=== PATIENT | male | born 1960 | race Caucasian/White ===

== ENCOUNTER 2017-01-28 22:20 | Emergency (ER) | payer SELFPAY ==
[~2017-01-28] VITALS: Ht 180.3 cm; Wt 65.0 kg
[2017-01-28 22:26] VITALS: BP 108/73; PULSE 89; RESP 18; TEMP 98; O2SAT 98
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
[2017-01-29 03:01] VITALS: BP 135/67
--- NOTE | 2017-01-29 13:54 | EKG ---
Date Performed: 01/28/2017 Time Performed: 22:18:39 PTAGE: 56 years EKG: Sinus rhythm NORMAL ECG PREVIOUS TRACING : 03/15/2016 14.51 DOCTOR: Jam Serar Interpretating Date/Time 01/29/2017 13:50:28
== END 2017-01-29 03:03 | disposition home or self-care (01) ==
LOC: NEPC 22:20
DX: M79.602 Pain in left arm (principal); F17.210 Nicotine dependence, cigarettes, uncomplicated
CPT/HCPCS: 84484; 93005

== ENCOUNTER 2017-02-15 20:13 | Observation (INO) | payer SELFPAY ==
[~2017-02-15] VITALS: Ht 180.3 cm; Wt 65.9 kg
[2017-02-15 20:24] VITALS: BP 120/79; PULSE 97; RESP 18; O2SAT 93
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
[2017-02-15 20:48] LABS: AUTOMATED NEUTROPHIL # 3.3 TH/MM3 (1.8-7.7); BASOPHIL % 0.4 % (0.0-2.0); EOSINOPHIL # 0.2 TH/MM3 (0-0.4); EOSINOPHIL % 3.6 % (0.0-4.0); HEMATOCRIT 43.8 % (39.0-51.0); HEMO FLAGS DIFF FINAL; LYMPH % 39.2 % (9.0-44.0); LYMPHOCYTE # 2.5 TH/MM3 (1.0-4.8); MEAN CELL VOLUME 93.9 FL (80.0-100.0); MEAN CORPUSCULAR HEMOGLOBIN 30.9 PG (27.0-34.0); MEAN CORPUSCULAR HGB CONC 32.9 % (32.0-36.0); MONO % 5.8 % (0.0-8.0); PLATELET COUNT 273 TH/MM3 (150-450); RED BLOOD COUNT 4.66 MIL/MM3 (4.50-5.90); RED CELL DISTRIBUTION WIDTH 13.2 % (11.6-17.2); WHITE BLOOD COUNT 6.5 TH/MM3 (4.0-11.0)
[2017-02-15 20:59] LABS: INTERNATIONAL NORMALIZED RATIO 0.9 RATIO; PROTHROMBIN TIME - PATIENT 10.4 SEC (9.8-11.6)
[2017-02-15 21:12] LABS: BLOOD, URINE NEG (NEG); COMMENT (UR) CULT NOT INDICATED; CULTURE IF INDICATED CULT NOT INDICATED; GLUCOSE,URINE NEG (NEG); KETONE, URINE NEG (NEG); NITRITE,URINE NEG (NEG); PH, URINE 5.5 (5.0-8.5); SQUAMOUS EPITHELIAL CELL URINE <1 /hpf (0-5); URINE COLOR COLORLESS (YELLW/STRAW)
--- NOTE | 2017-02-15 21:12 | RADRPT ---
EXAM DATE/TIME: 02/15/2017 20:46 [facility] COMPARISON: CT BRAIN W/O CONTRAST, November 02, 2016, 18:48. INDICATIONS : Altered mental status. ETOH. RADIATION DOSE: 40.12 CTDIvol (mGy) MEDICAL HISTORY : Cardiovascular disease. SURGICAL HISTORY : None. ENCOUNTER: Initial ACUITY: 1 day PAIN SCALE: Non-responsive LOCATION: cranial TECHNIQUE: Multiple contiguous axial images were obtained of the head. Using automated exposure control and adj ustment of the mA and/or kV according to patient size, radiation dose was kept as low as reasonably a chievable to obtain optimal diagnostic quality images. FINDINGS: CEREBRUM: The ventricles are normal for age. No evidence of midline shift, mass lesion, hemorrhage or acute in farction. No extra-axial fluid collections are seen. POSTERIOR FOSSA: The cerebellum and brainstem are intact. The 4th ventricle is midline. The cerebellopontine angle i s unremarkable. EXTRACRANIAL: The visualized portion of the orbits is intact. SKULL: The calvaria is intact. No evidence of skull fracture. CONCLUSION: Normal examination for a patient of this age. No significant change has occurred. Rodrigo Kan MD on February 15, 2017 at 21:09 Board Certified Radiologist. This report was verified electronically.
[2017-02-15 21:15] LABS: ANION GAP 9 MEQ/L (5-15)
--- NOTE | 2017-02-15 21:15 | RADRPT ---
EXAM DATE/TIME: 02/15/2017 20:27 [facility] COMPARISON: No previous studies available for comparison. INDICATIONS : Chest pain. MEDICAL HISTORY : None. SURGICAL HISTORY : None. ENCOUNTER: Initial ACUITY: 1 day PAIN SCORE: 8/10 LOCATION: Bilateral chest FINDINGS: A single view of the chest demonstrates minimal basilar atelectasis or scarring. No effusion. No pneu mothorax. Heart size upper limits normal. Atherosclerotic aorta. CONCLUSION: 1. Minimal basal atelectasis or scarring. Rodrigo Kan MD on February 15, 2017 at 21:12 Board Certified Radiologist. This report was verified electronically.
[2017-02-15 21:19] LABS: ALKALINE PHOSPHATASE 75 U/L (45-117); ALT (GPT) 18 U/L (12-78); AST (GOT) 31 U/L (15-37); BICARBONATE 25.8 MEQ/L (21.0-32.0); BLOOD UREA NITROGEN 3 MG/DL (7-18); CHLORIDE 102 MEQ/L (98-107); CREATINE KINASE 102 U/L (39-308); GLOMERULAR FILTRATION RATE 106 ML/MIN (>89); SODIUM (NA) 137 MEQ/L (136-145); TOTAL BILIRUBIN ADULT 0.2 MG/DL (0.2-1.0)
[2017-02-15 21:20] LABS: AMPHETAMINE, URINE NEG (NEG); BARBITURATES, URINE NEG (NEG); COCAINE, URINE NEG (NEG)
[2017-02-15 21:39] LABS: CKMB 0.5 NG/ML (0.5-3.6)
[2017-02-15] MEDS ORDERED: THIAMINE INJ 100 MG in SODIUM CHLORIDE 0.9% INJ 100 ML IV ONE (22:00)
[2017-02-15] MEDS: SODIUM CHLOR 0.9% 1000 ML INJ 1,000 ML IV SCH (22:05)
[2017-02-15] MEDS ORDERED: ASPIRIN 81 MG CHEW TAB CHEW ONE (22:15)
--- NOTE | 2017-02-15 22:16 | RADRPT ---
EXAM DATE/TIME: 02/15/2017 21:38 [facility] COMPARISON: No previous studies available for comparison. INDICATIONS : Left sided weakness. MEDICAL HISTORY : Cardiovascular disease Hypercholesterolemia. SURGICAL HISTORY : None. 2011 ENCOUNTER: Initial ACUITY: 1 day PAIN SCORE: 5/10 LOCATION: Left shoulder TECHNIQUE: Multiplanar, multisequence MRI of the brain was performed without contrast. FINDINGS: CEREBRUM: The ventricles are normal for age. No evidence of midline shift, mass lesion, hemorrhage or acute in farction. No extraaxial fluid collections are seen. The pituitary gland and suprasellar cistern are normal in configuration. WHITE MATTER: No significant signal abnormalities are seen in the white matter. POSTERIOR FOSSA: The cerebellum and brainstem are intact. The 4th ventricle is midline. The cerebellopontine angle is unremarkable. The cerebellar tonsils are normal in position. DIFFUSION IMAGING: No focal areas of restricted diffusion are seen. No evidence of acute infarction. EXTRACRANIAL: The visualized portions of the orbits and paranasal sinuses are unremarkable. CONCLUSION: 1. No acute findings. Specifically no recent infarct, mass effect or shift. Rodrigo Kan MD on February 15, 2017 at 22:12 Board Certified Radiologist. This report was verified electronically.
[2017-02-15] MEDS ORDERED: ACETAMINOPHEN 325 MG TAB PO ONE (23:00)
[2017-02-15] MEDS ORDERED: LORazepam 2 MG TAB PO PRN (23:15)
[2017-02-15] MEDS ORDERED: BISACODYL 10 MG SUPP RECTAL PRN (23:15)
[2017-02-15] MEDS ORDERED: ACETAMINOPHEN 325 MG TAB PO PRN (23:15)
[2017-02-15] MEDS ORDERED: LORazepam 2 MG/ML VIAL IV PUSH PRN ×4 (23:15)
[2017-02-15] MEDS ORDERED: SODIUM CHLORIDE 0.9% FLUSH 10 ML FLUSH IV FLUSH PRN (23:15)
[2017-02-15] MEDS ORDERED: LORazepam 1 MG TAB PO PRN (23:15)
[2017-02-15] MEDS ORDERED: HALOPERIDOL LACTATE 5 MG/ML AMP IM PRN (23:15)
[2017-02-15] MEDS ORDERED: FLUMAZENIL 0.5 MG/5 ML VIAL IV PUSH PRN (23:15)
[2017-02-15] MEDS ORDERED: ONDANSETRON HCL 4 MG/2 ML VIAL IVP PRN (23:15)
--- NOTE | 2017-02-15 23:15 | HHI.HP ---
[facility] No Primary Care Physician Admission Diagnosis Cp RO CA, left sided neurologic symptoms, R/o TIA Diagnoses: (1) Chest pain Diagnosis: Principal (2) Lower extremity weakness Diagnosis: Principal (3) Alcoholic intoxication Diagnosis: Principal Travel History International Travel<30 Days: No Contact w/Intl Traveler <30 Da: No Traveled to Known Affected Are: No History of Present Illness This is a 56-year-old male with a PMH of Anxiety, Depression, CAD s/p Stent 2011 , Alcohol Abuse, Tobacco Abuse and h/o Methamphetamine Abuse who presents to the ER with complaints of chest pain with radiation to left shoulder. Patient arrives in the ER acutely intoxicated. While in ER, also had complaints of left lower extremity weakness and difficulty ambulating. On arrival, BP 120/79 , HR 97, O2 sat 93% on RA, Afebrile. CBC unremarkable. Chemistry essentially unremarkable. Troponin negative. EKG with no acute changes. Alcohol 311. Urine Drug Screen negative. UA negative. CXR with no acute findings, minimal basal atelectasis. MRI Brain with no acute findings. Shoulder X-ray negative. Review of Systems Except as stated in HPI: all other systems reviewed are Neg ROS: 14 point review of systems otherwise negative. Past Family Social History Past Medical History PMH: Anxiety, Depression, CAD s/p Stent 2011, Alcohol Abuse, Tobacco Abuse and h/o Methamphetamine Abuse Past Surgical History PAST SURGICAL HISTORY: Cardiac Stent Allergies: Coded Allergies: No Known Allergies (Verified , 02/15/17) Family History PAST FAMILY HISTORY: Reviewed. No h/o DM or CAD Social History PAST SOCIAL HISTORY: Drinks daily, unable to quantify. Smokes 1ppd. H/o Methamphetamine Abuse, Urine Drug Screen negative. Physical Exam Vital Signs Vital Signs Date Time Temp Pulse Resp B/P Pulse Ox O2 Delivery O2 Flow Rate FiO2 02/15/17 20:24 97 18 120/79 93 Physical Exam PE: GENERAL: Middle-aged white male in no acute distress, acutely intoxicated. HEENT: PERRLA, EOMI. No scleral icterus or conjunctival pallor. No lid lag or facial droop. CARDIOVASCULAR: Regular rate and rhythm. No obvious murmurs to auscultation. No chest tenderness to palpation. RESPIRATORY: No obvious rhonchi or wheezing. Clear to auscultation. Breath sounds equal bilaterally. GASTROINTESTINAL: Abdomen soft, non-tender, nondistended. BS normal. MUSCULOSKELETAL: Extremities without clubbing, cyanosis, or edema. No obvious deformities. NEUROLOGICAL: Awake, alert, intoxicated. No focal neurologic deficits. Moving both upper and lower extremities spontaneously. Laboratory Laboratory Tests Test 02/15/17 02/15/17 20:40 21:00 White Blood Count 6.5 Red Blood Count 4.66 Hemoglobin 14.4 Hematocrit 43.8 Mean Corpuscular Volume 93.9 Mean Corpuscular Hemoglobin 30.9 Mean Corpuscular Hemoglobin 32.9 Concent Red Cell Distribution Width 13.2 Platelet Count 273 Mean Platelet Volume 7.3 Neutrophils (%) (Auto) 51.0 Lymphocytes (%) (Auto) 39.2 Monocytes (%) (Auto) 5.8 Eosinophils (%) (Auto) 3.6 Basophils (%) (Auto) 0.4 Neutrophils # (Auto) 3.3 Lymphocytes # (Auto) 2.5 Monocytes # (Auto) 0.4 Eosinophils # (Auto) 0.2 Basophils # (Auto) 0.0 CBC Comment DIFF FINAL Differential Comment Prothrombin Time 10.4 Prothromb Time International 0.9 Ratio Activated Partial 28.0 Thromboplast Time Sodium Level 137 Potassium Level 4.0 Chloride Level 102 Carbon Dioxide Level 25.8 Anion Gap 9 Blood Urea Nitrogen 3 Creatinine 0.76 Estimat Glomerular Filtration 106 Rate Random Glucose 86 Calcium Level 8.1 Magnesium Level 2.0 Total Bilirubin 0.2 Aspartate Amino Transf 31 (AST/SGOT) Alanine Aminotransferase 18 (ALT/SGPT) Alkaline Phosphatase 75 Total Creatine Kinase 102 Creatine Kinase MB 0.5 Troponin I LESS THAN 0.02 B-Type Natriuretic Peptide 24 Total Protein 7.3 Albumin 3.6 Lipase 85 Ethyl Alcohol Level 311 Urine Color COLORLESS Urine Turbidity CLEAR Urine pH 5.5 Urine Specific [place] 1.002 Urine Protein NEG Urine Glucose (UA) NEG Urine Ketones NEG Urine Occult Blood NEG Urine Nitrite NEG Urine Bilirubin NEG Urine Urobilinogen LESS THAN 2.0 Urine Leukocyte Esterase NEG Urine RBC 5 Urine WBC 1 Urine Squamous Epithelial <1 Cells Microscopic Urinalysis Comment CULT NOT INDICATED Urine Opiates Screen NEG Urine Barbiturates Screen NEG Urine Amphetamines Screen NEG Urine Benzodiazepines Screen NEG Urine Cocaine Screen NEG Urine Cannabinoids Screen NEG Result Diagram: 02/15/17203902/15/172039 Assessment and Plan Problem List: (1) Chest pain ICD Code: R07.9 Status: Acute (2) Lower extremity weakness ICD Code: R29.898 Status: Acute (3) Alcoholic intoxication ICD Code: F10.129 Status: Acute Assessment and Plan A/P: 1. Chest Pain: acute onset of chest pain w/ radiation to left shoulder, h/o CAD. Initial trop negative, EKG w/ no acute ischemia. Admit for Observation, telemetry. CXR w/ no acute findings, Shoulder X-ray negative, images reviewed by me. Currently chest pain free. NTG/Morphine prn if needed. 2. LE Weakness: reports lower extremity weakness w/ difficulty ambulating due to weakness. MRI Brain w/ no acute findings, images reviewed by me. Check Carotid US. PT for eval/tx. 3. Alcohol Intoxication: Alcohol Abuse w/ Acute Alcohol Intoxication, drinks daily, Alcohol 311. Seizure Precautions, MVT/Thiamine/Folate, will start CIWA protocol to prevent withdrawal during hospitalization. 4. DVT Prophylaxis: SCD/Teds. 5. Social work for d/c planning as needed. 6. Case discussed w/ ER physician at length Freda Guzmán MD Feb 15, 2017 23:15
--- NOTE | 2017-02-15 23:40 | RADRPT ---
EXAM DATE/TIME: 02/15/2017 23:06 [facility] COMPARISON: No previous studies available for comparison. INDICATIONS : Left shoulder pain, no known injury. MEDICAL HISTORY : None. SURGICAL HISTORY : None. ENCOUNTER: Initial ACUITY: 1 week PAIN SCORE: 10/10 LOCATION: Left shoulder. FINDINGS: Multiple view examination of the left shoulder demonstrates no evidence of fracture or dislocation. The glenohumeral and acromioclavicular joints are maintained. Degenerative changes are seen involving the acromioclavicular joint without significant subacromial space spurring. There is normal range o f motion between internal and external rotation. Bony mineralization is normal. CONCLUSION: 1. No acute abnormality. 2. Degenerative changes of the a.c. joint. Brayden Nguyen Jr., MD on February 15, 2017 at 23:38 Board Certified Radiologist. This report was verified electronically.
[2017-02-15] MEDS: THIAMINE INJ 100 MG in SODIUM CHLORIDE 0.9% INJ 100 ML IV SCH (23:56)
[2017-02-16] VITALS (9 sets, daily range): BP systolic 91–153; BP diastolic 67–80; PULSE 70–89; RESP 16–18; TEMP 95.7–98.4; O2SAT 93–97
[2017-02-16] MEDS: MORPHINE SULFATE 4 MG/ML INJ IV PRN ×3 (01:03→19:38)
[2017-02-16] MEDS: MULTIVITAMIN INJ 10 ML, FOLIC ACID INJ 1 MG in SODIUM CHLORID 0.9% 500 ML INJ 500 ML IV SCH ×2 (01:03→22:32)
[2017-02-16] MEDS ORDERED: ASPIRIN 81 MG CHEW TAB CHEW SCH (09:00)
[2017-02-16] MEDS: SODIUM CHLORIDE 0.9% FLUSH 10 ML FLUSH IV FLUSH SCH ×2 (09:00→19:38)
--- NOTE | 2017-02-16 09:15 | RADRPT ---
EXAM DATE/TIME: 02/16/2017 08:24 [facility] COMPARISON: No previous studies available for comparison. INDICATIONS : Transient ischemic attack. MEDICAL HISTORY : Myocardial infarction. Arthritis. Substance use. Measles. SURGICAL HISTORY : Coronary artery stent. Cardiac cath. ENCOUNTER: Initial ACUITY: 2 days PAIN SCORE: 2/10 LOCATION: Bilateral neck PEAK SYSTOLIC VELOCITIES (cm/sec): ICA/CCA RATIO: Right: 1.0 Left: 0.9 ICA: Right: 83 Left: 77 CCA: Right: 81 Left: 82 ECA: Right: 177 Left: 141 VERTEBRAL: Right: 37 antegrade Left: 58 antegrade Elevated flow velocities and ICA/CCA ratios have been found to correlate with increased degrees of vessel stenosis, calculated as percentage of diameter relative to a normal segment of distal ICA/CCA FINDINGS: RIGHT CAROTID: There is no evidence for a hemodynamically significant carotid stenosis. Minimal int imal hyperplasia is present with scattered calcific plaque. LEFT CAROTID: There is no evidence for a hemodynamically significant carotid stenosis. Minimal inti mal hyperplasia is present with scattered calcific plaque. VERTEBRAL ARTERIES: Flow is antegrade in both vertebral arteries. MISCELLANEOUS: There are no ancillary masses or adenopathy. CONCLUSION: Negative examination for a hemodynamically significant carotid stenosis. Jesus Choudhary MD FACR Jesus Choudhary MD FACR on February 16, 2017 at 9:12 Board Certified Radiologist. This report was verified electronically.
[2017-02-16] MEDS: ACETAMINOPHEN/HYDROcodone 325 MG/5 MG TAB PO PRN ×2 (09:18→18:40)
[2017-02-16] MEDS ORDERED: CYCLOBENZAPRINE HCL 10 MG TAB PO ONE (10:30)
[2017-02-16] MEDS ORDERED: PILL SPLITTER OTHER PRN (10:30)
--- NOTE | 2017-02-16 10:31 | HHI.PR ---
Subjective Remarks Follow up for acute alcohol intoxication, chest pain, left shoulder pain. The patient today recalls going to get a beer last night, then he isn't sure what happened, but remembers coming to the hospital via [facility]. He states his chest just feels sore today but denies any specific chest pains. He mostly complains of left shoulder pain, unable to lift the left arm, with associated tingling and weakness. Denies any neck pain. Denies any shortness of breath, edema, or weight gain. He states his shoulder has been painful for 2 weeks now. He does not recall any recent injury or fall. He does not follow with any doctors in at least 3-4 years. He does not take any medications. When asked how much he drinks , he states "I don't know". He denies any tremors currently. Last drink was yesterday. Objective Vitals Vital Signs Date Time Temp Pulse Resp B/P Pulse Ox O2 Delivery O2 Flow Rate FiO2 02/16/17 07:32 96.2 75 16 136/80 94 02/16/17 05:07 98.4 77 18 91/67 93 02/16/17 01:18 77 02/16/17 01:14 16 02/16/17 01:14 16 02/16/17 00:29 96 02/15/17 20:24 97 18 120/79 93 Result Diagram: 02/15/17203902/15/172039 Imaging Last Impressions Carotid Artery Ultrasound 02/16/17 0000 Signed Impressions: Service Date/Time: Thursday, February 16, 2017 08:24 - CONCLUSION: Negative examination for a hemodynamically significant carotid stenosis. Jesus Choduhary MD Shoulder X-Ray 02/15/172249 Signed Impressions: Service Date/Time: Wednesday, February 15, 2017 23:06 - CONCLUSION: 1. No acute abnormality. 2. Degenerative changes of the a.c. joint. Brayden Nguyen Jr., MD Brain MRI 02/15/172107 Signed Impressions: Service Date/Time: Wednesday, February 15, 2017 21:38 - CONCLUSION: 1. No acute findings. Specifically no recent infarct, mass effect or shift. Rodrigo Kan MD Head CT 02/15/172029 Signed Impressions: Service Date/Time: Wednesday, February 15, 2017 20:46 - CONCLUSION: Normal examination for a patient of this age. No significant change has occurred. Rodrigo Kan MD Chest X-Ray 02/15/172029 Signed Impressions: Service Date/Time: Wednesday, February 15, 2017 20:27 - CONCLUSION: 1. Minimal basal atelectasis or scarring. Rodrigo Kan MD Objective Remarks GENERAL: Well-nourished, well-developed middle aged male patient in [facility]. SKIN: Warm and dry. No rash. HEENT: Normocephalic. Atraumatic. Pupils equal and round. No scleral icterus. No injection or drainage. Mucous membranes pink and moist. NECK: Supple. Trachea midline. CARDIOVASCULAR: Regular rate and rhythm. S1, S2 noted. No murmur appreciated. Chest wall nontender to palpation. RESPIRATORY: No accessory muscle use. Clear to auscultation. Breath sounds equal bilaterally. GASTROINTESTINAL: Abdomen soft, non-tender, nondistended. Normoactive bowel sounds x4. MUSCULOSKELETAL: No obvious deformities. Extremities without clubbing, cyanosis , or edema. Left shoulder nontender to palpation however left shoulder pain elicited with any active or passive ROM exercises of the arm. Mildly tender left trapezius and upper thoracic paraspinous muscles consistent with muscle spasms. NEUROLOGICAL: Awake and alert. No obvious cranial nerve deficits. Motor grossly within normal limits. 5/5 muscle strength in bilateral lower extremities and RUE. 5/5 church administrator strength of LUE however does not participate in any other LUE strength testing secondary to pain. Normal speech. PSYCHIATRIC: Appropriate mood and affect; insight and judgment normal. Medications and IVs Current Medications Medications (Trade) Dose Ordered Sig/Jt Route Start Time Stop Time Status Last Admin Sodium Chloride 1,000 ml @ 70 mls/hr [id number] IV 02/15/17 22:00 02/15/17 22:05 Multivitamins 10 ml/Folic Acid 1 mg/Sodium Chloride 510.2 ml @ 125 mls/hr Q24H IV 02/15/17 23:15 02/20/17 23:14 02/16/17 01:03 (Thiamine Inj/NS Inj) 101 ml @ 100 mls/hr Q24H IV 02/15/17 23:15 02/18/17 23:14 02/15/17 23:56 (Vitamin B1) 100 mg DAILY PO 02/19/17 09:00 (Romazicon Inj) 0.2 mg Q1M PRN IV PUSH 02/15/17 23:15 (Ativan) 1 mg Q4H PRN PO 02/15/17 23:15 (Ativan Inj) 1 mg Q4H PRN IV PUSH 02/15/17 23:15 (Ativan) 2 mg Q2H PRN PO 02/15/17 23:15 (Ativan Inj) 2 mg Q2H PRN IV PUSH 02/15/17 23:15 02/16/17 02:50 (Ativan Inj) 2 mg Q1H PRN IV PUSH 02/15/17 23:15 (Ativan Inj) 2 mg Q15M PRN IV PUSH 02/15/17 23:15 (Haldol Inj) 2 mg Q15M PRN IM 02/15/17 23:15 (NS Flush) 2 ml UNSCH PRN IV FLUSH 02/15/17 23:15 (NS Flush) 2 ml BID IV FLUSH 02/16/17 09:00 (Zofran Inj) 4 mg Q6H PRN IVP 02/15/17 23:15 (Dulcolax Supp) 10 mg DAILY PRN RECTAL 02/15/17 23:15 (Tylenol) 650 mg Q6H PRN PO 02/15/17 23:15 ([place] 5-325 Mg) 1 tab Q4H PRN PO 02/15/17 23:15 02/16/17 09:18 (Morphine Inj) 2 mg Q3H PRN IV 02/15/17 23:15 02/16/17 01:03 (Flexeril) 5 mg Q8H PRN PO 02/16/17 10:15 (Flexeril) 5 mg ONCE ONCE PO 02/16/17 10:30 02/16/17 10:31 (Pill Splitter) 1 ea UNSCH PRN OTHER 02/16/17 10:30 Urinary Catheter: No Vascular Central Line Catheter: No A/P Problem List: (1) Chest pain ICD Code: R07.9 Status: Acute (2) Lower extremity weakness ICD Code: R29.898 Status: Acute (3) Alcoholic intoxication ICD Code: F10.129 Status: Acute Assessment and Plan 56-year-old male with a PMH of Anxiety, Depression, CAD s/p Stent 2011, Alcohol Abuse, Tobacco Abuse and h/o Methamphetamine Abuse who presents to the ER with complaints of chest pain with radiation to left shoulder. Atypical Chest Pain: acute onset of chest pain w/ radiation to left shoulder, h /o CAD w/stent x1. Initial trops negative x2, EKG w/ no acute ischemia, checking 3rd set. Admit for Observation, monitor on telemetry. CXR w/ no acute findings, images reviewed by me. Currently chest pain free. NTG/ Morphine prn if needed. Check echocardiogram. No further episodes of chest pain. Suspect musculoskeletal related to shoulder pain. Left Shoulder Pain: strongly suspect musculoskeletal, advanced arthritis, muscle spasms. Shoulder xray images reviewed by me, no acute abnormality, shows degenerative changes of the AC joint. [place] prn. Flexeril prn. LE Weakness: reports lower extremity weakness w/ difficulty ambulating due to weakness. MRI Brain w/ no acute findings, images reviewed by me. Carotid US unremarkable. PT for eval/tx. Alcohol Abuse w/ Acute Alcohol Intoxication: drinks daily, Alcohol 311. Counseled on cessation. Seizure Precautions, MVT/Thiamine/Folate, start CIWA protocol to prevent withdrawal during hospitalization. DVT Prophylaxis: SCD/Teds. Aziza Enrique PA-C Feb 16, 2017 10:31 am
--- NOTE | 2017-02-16 10:35 | EKG ---
Date Performed: 02/15/2017 Time Performed: 20:26:57 PTAGE: 56 years EKG: Sinus rhythm NORMAL ECG PREVIOUS TRACING : 01/28/2017 22.18 DOCTOR: Jam Serra Interpretating Date/Time 02/16/2017 10:33:19
[2017-02-16] MEDS: ASPIRIN EC 81 MG TABEC PO SCH (11:32)
[2017-02-16 11:38] LABS: AUTOMATED NEUTROPHIL # 4.2 TH/MM3 (1.8-7.7); BASOPHIL # 0.1 TH/MM3 (0-0.2); BASOPHIL % 1.2 % (0.0-2.0); EOSINOPHIL # 0.3 TH/MM3 (0-0.4); EOSINOPHIL % 4.1 % (0.0-4.0); HEMATOCRIT 38.4 % (39.0-51.0); HEMO FLAGS DIFF FINAL; LYMPH % 22.1 % (9.0-44.0); LYMPHOCYTE # 1.5 TH/MM3 (1.0-4.8); MEAN CELL VOLUME 93.3 FL (80.0-100.0); MEAN CORPUSCULAR HEMOGLOBIN 32.3 PG (27.0-34.0); MEAN CORPUSCULAR HGB CONC 34.6 % (32.0-36.0); MONO % 8.8 % (0.0-8.0); NEUT % 63.8 % (16.0-70.0); PLATELET COUNT 283 TH/MM3 (150-450); RED BLOOD COUNT 4.12 MIL/MM3 (4.50-5.90); RED CELL DISTRIBUTION WIDTH 13.3 % (11.6-17.2); WHITE BLOOD COUNT 6.6 TH/MM3 (4.0-11.0)
[2017-02-16 12:09] LABS: ALKALINE PHOSPHATASE 63 U/L (45-117); ALT (GPT) 15 U/L (12-78); ANION GAP 8 MEQ/L (5-15); AST (GOT) 24 U/L (15-37); BICARBONATE 25.7 MEQ/L (21.0-32.0); BLOOD UREA NITROGEN 5 MG/DL (7-18); CHLORIDE 105 MEQ/L (98-107); GLOMERULAR FILTRATION RATE 123 ML/MIN (>89); POTASSIUM 4.1 MEQ/L (3.5-5.1); SODIUM (NA) 139 MEQ/L (136-145); TOTAL BILIRUBIN ADULT 0.3 MG/DL (0.2-1.0)
[2017-02-16] MEDS: SODIUM CHLOR 0.9% 1000 ML INJ 1,000 ML IV SCH (13:39)
[2017-02-16] MEDS: THIAMINE INJ 100 MG in SODIUM CHLORIDE 0.9% INJ 100 ML IV SCH (22:32)
[2017-02-16] MEDS: CYCLOBENZAPRINE HCL 10 MG TAB PO PRN (22:33)
[2017-02-17] VITALS (7 sets, daily range): BP systolic 109–155; BP diastolic 65–81; PULSE 68–90; RESP 17–20; TEMP 97.5–98.2; O2SAT 92–97
[2017-02-17] MEDS: SODIUM CHLORIDE 0.9% FLUSH 10 ML FLUSH IV FLUSH SCH ×2 (09:00→20:24)
[2017-02-17] MEDS ORDERED: REGADENOSON INJ 0.4 MG/5 ML SYR ONE (09:49)
[2017-02-17] MEDS: ASPIRIN EC 81 MG TABEC PO SCH (11:01)
[2017-02-17] MEDS: ACETAMINOPHEN/HYDROcodone 325 MG/5 MG TAB PO PRN ×2 (11:02→19:18)
[2017-02-17] MEDS: CYCLOBENZAPRINE HCL 10 MG TAB PO PRN ×2 (11:05→19:18)
--- NOTE | 2017-02-17 11:10 | HHI.PR ---
Subjective Remarks Follow up for chest pain, left shoulder pain, weakness. The patient complains of continued left shoulder pain, although the Lortab and Flexeril is helping and he is now at least able to lift the arm slightly. He still has numbness and tingling only when he lifts the left arm. Continues to deny any recent injury or fall. Denies any chest pain. Denies any neck pain. Denies fevers/chills. Denies any other medical complaints at this time. Objective Vitals Vital Signs Date Time Temp Pulse Resp B/P Pulse Ox O2 Delivery O2 Flow Rate FiO2 02/17/17 07:36 97.7 80 17 155/81 94 02/17/17 06:15 88 18 136/71 97 02/16/17 20:01 98.2 72 18 140/77 97 02/16/17 19:59 16 02/16/17 19:58 16 02/16/17 19:15 77 02/16/17 15:28 96.5 70 18 153/77 94 02/16/17 11:36 95.7 76 18 119/74 94 I/O 02/16/17 02/16/17 02/16/17 02/17/17 02/17/17 02/17/17 07:00 15:00 23:00 07:00 15:00 23:00 Intake Total 1900 ml Output Total 1300 ml Balance 600 ml Intake Oral 650 ml IV Total 1250 ml Output Urine Total 1300 ml # Bowel Movements 0 Result Diagram: 02/16/17 1122 02/16/17 1122 Imaging Last Impressions Myocardial Perfusion Scan Nuc Med 02/17/17 0700 Signed Impressions: Service Date/Time: Friday, February 17, 2017 09:20 - CONCLUSION: Mild severity fixed anterior perfusion abnormality without evidence of ischemia. RISK CATEGORY: Intermediate (1-3%% Annual Mortality Rate) Curtis Fitzgerald MD Carotid Artery Ultrasound 02/16/17 0000 Signed Impressions: Service Date/Time: Thursday, February 16, 2017 08:24 - CONCLUSION: Negative examination for a hemodynamically significant carotid stenosis. Jesus Choudhary MD Shoulder X-Ray 02/15/17 2250 Signed Impressions: Service Date/Time: Wednesday, February 15, 2017 23:06 - CONCLUSION: 1. No acute abnormality. 2. Degenerative changes of the a.c. joint. Brayden Nguyen Jr., MD Brain MRI 02/15/172107 Signed Impressions: Service Date/Time: Wednesday, February 15, 2017 21:38 - CONCLUSION: 1. No acute findings. Specifically no recent infarct, mass effect or shift. Rodrigo Kan MD Head CT 02/15/172029 Signed Impressions: Service Date/Time: Wednesday, February 15, 2017 20:46 - CONCLUSION: Normal examination for a patient of this age. No significant change has occurred. Rodrigo Kan MD Chest X-Ray 02/15/172029 Signed Impressions: Service Date/Time: Wednesday, February 15, 2017 20:27 - CONCLUSION: 1. Minimal basal atelectasis or scarring. Rodrigo Kan MD Objective Remarks GENERAL: Well-nourished, well-developed middle aged male patient in [place]. SKIN: Warm and dry. No rash. HEENT: Normocephalic. Atraumatic. Pupils equal and round. No scleral icterus. No injection or drainage. Mucous membranes pink and moist. NECK: Supple. Trachea midline. CARDIOVASCULAR: Regular rate and rhythm. S1, S2 noted. No murmur appreciated. Chest wall nontender to palpation. RESPIRATORY: No accessory muscle use. Clear to auscultation. Breath sounds equal bilaterally. GASTROINTESTINAL: Abdomen soft, non-tender, nondistended. Normoactive bowel sounds x4. MUSCULOSKELETAL: No obvious deformities. Extremities without clubbing, cyanosis , or edema. Left shoulder nontender to palpation however left shoulder pain elicited with any active or passive ROM exercises of the arm. Mildly tender left trapezius and upper thoracic paraspinous muscles consistent with muscle spasms. NEUROLOGICAL: Awake and alert. No obvious cranial nerve deficits. Motor grossly within normal limits. 5/5 muscle strength in BLE and RUE. 5/5 call manager strength of LUE however LUE strength testing limited secondary to left shoulder pain. Normal speech. PSYCHIATRIC: Appropriate mood and affect; insight and judgment normal. Medications and IVs Current Medications Medications (Trade) Dose Ordered Sig/Jt Route Start Time Stop Time Status Last Admin Sodium Chloride 1,000 ml @ 70 mls/hr [id number] IV 02/15/17 22:00 02/16/17 13:39 Multivitamins 10 ml/Folic Acid 1 mg/Sodium Chloride 510.2 ml @ 125 mls/hr Q24H IV 02/15/17 23:15 02/20/17 23:14 02/16/17 22:32 (Thiamine Inj/NS Inj) 101 ml @ 100 mls/hr Q24H IV 02/15/17 23:15 02/18/17 23:14 02/16/17 22:32 (Vitamin B1) 100 mg DAILY PO 02/19/17 09:00 (Romazicon Inj) 0.2 mg Q1M PRN IV PUSH 02/15/17 23:15 (Ativan) 1 mg Q4H PRN PO 02/15/17 23:15 (Ativan Inj) 1 mg Q4H PRN IV PUSH 02/15/17 23:15 (Ativan) 2 mg Q2H PRN PO 02/15/17 23:15 (Ativan Inj) 2 mg Q2H PRN IV PUSH 02/15/17 23:15 02/16/17 02:50 (Ativan Inj) 2 mg Q1H PRN IV PUSH 02/15/17 23:15 (Ativan Inj) 2 mg Q15M PRN IV PUSH 02/15/17 23:15 (Haldol Inj) 2 mg Q15M PRN IM 02/15/17 23:15 (NS Flush) 2 ml UNSCH PRN IV FLUSH 02/15/17 23:15 (NS Flush) 2 ml BID IV FLUSH 02/16/17 09:00 02/16/17 19:38 (Zofran Inj) 4 mg Q6H PRN IVP 02/15/17 23:15 (Dulcolax Supp) 10 mg DAILY PRN RECTAL 02/15/17 23:15 (Tylenol) 650 mg Q6H PRN PO 02/15/17 23:15 ([place] 5-325 Mg) 1 tab Q4H PRN PO 02/15/17 23:15 02/17/17 11:02 (Morphine Inj) 2 mg Q3H PRN IV 02/15/17 23:15 02/16/17 19:38 (Flexeril) 5 mg Q8H PRN PO 02/16/17 10:15 02/17/17 11:05 (Pill Splitter) 1 ea UNSCH PRN OTHER 02/16/17 10:30 (Ecotrin Ec) 81 mg DAILY PO 02/16/17 11:00 02/17/17 11:01 Urinary Catheter: No Vascular Central Line Catheter: No A/P Problem List: (1) Chest pain ICD Code: R07.9 Status: Acute (2) Lower extremity weakness ICD Code: R29.898 Status: Acute (3) Alcoholic intoxication ICD Code: F10.129 Status: Acute Assessment and Plan 56-year-old male with a PMH of Anxiety, Depression, CAD s/p Stent 2011, Alcohol Abuse, Tobacco Abuse and h/o Methamphetamine Abuse who presents to the ER with complaints of chest pain with radiation to left shoulder. Atypical Chest Pain: acute onset of chest pain w/ radiation to left shoulder, h /o CAD w/stent x1. ACS ruled out with negative serial cardiac enzymes x3 and EKG with no acute ischemia. Monitor on telemetry. CXR w/ no acute findings, images reviewed by me. NTG/Morphine prn if needed. Suspect musculoskeletal related to shoulder pain however with hx of CAD w/stent, checked Nuclear Stress Test which showed mild severity fixed anterior perfusion abnormality without evidence of ischemia. Currently chest pain free and no further episodes. Resolved. Left Shoulder Pain: strongly suspect musculoskeletal, advanced arthritis, muscle spasms. Shoulder xray images reviewed by me, no acute abnormality, shows degenerative changes of the AC joint. [place] prn. Flexeril prn. Still painful today, check C/T-spine MRI and L shoulder MRI. LE Weakness: reports lower extremity weakness w/ difficulty ambulating due to weakness. MRI Brain w/ no acute findings, images reviewed by me. Carotid US unremarkable. PT for eval/tx, recommended HHC vs Rehab. Alcohol Abuse w/ Acute Alcohol Intoxication: drinks daily, Alcohol 311. Counseled on cessation. Seizure Precautions, MVT/Thiamine/Folate, start CIWA protocol to prevent withdrawal during hospitalization. DVT Prophylaxis: SCD/Teds. Written by Aziza Enrique, acting as scribe for Dr. Puente on 02/17/17 at 11:10. All or portions of this note were transcribed by scribe ANTHONY Andrade . I , Dr. Hong Puente personally performed the history, physical exam, and medical decision making; and confirmed the accuracy of the information in the transcribed note. Authenticated by Dr. Hong Puente on 02/18/17 at 00:06. Problem Qualifiers (1) Chest pain: Qualified Code: R07.9 - Chest pain, unspecified type (2) Lower extremity weakness: Qualified Code: R29.898 - Weakness of left lower extremity (3) Alcoholic intoxication: Qualified Code: F10.129 - Alcoholic intoxication, with unspecified complication Aziza Enrique PA-C Feb 17, 2017 11:10 Santhosh Puente DO Feb 18, 2017 00:07
--- NOTE | 2017-02-17 11:20 | RADRPT ---
EXAM DATE/TIME: 02/17/2017 09:20 [facility] COMPARISON: No previous studies available for comparison. INDICATIONS : Left chest pain radiating to the left shoulder for one day. Angina. Coronary artery disease. DOSE: 25.8 mCi Tc99m Myoview at stress. 8.7 mCi Tc99m Myoview at rest. 0.4 mg Lexiscan STRESS SYMPTOMS: Dizziness and nausea. EJECTION FRACTION: 70% MEDICAL HISTORY : SURGICAL HISTORY : Coronary artery stent. ENCOUNTER: Initial ACUITY: 1 day PAIN SCALE: 6/10 LOCATION: Left chest TECHNIQUE: The patient underwent pharmacologic stress with infusion of prescribed dose. Continuous ECG tracing was monitored during stress. Gated SPECT imaging was performed after stress and conventional SPECT i maging was performed at rest. The examination was performed on a SPECT/CT scanner, both attenuation and non-corrected datasets were reviewed. FINDINGS: DISTRIBUTION: The maximum perfused segment at stress is in the posterobasal wall. PERFUSION STUDY: There is a moderate sized area of mildly diminished relative perfusion involving the anterior wall no t extending to the cardiac apex. There is no evidence of redistribution. GATED STUDY: There is intact wall motion and thickening without hypokinetic or dyskinetic segments. CONCLUSION: Mild severity fixed anterior perfusion abnormality without evidence of ischemia. RISK CATEGORY: Intermediate (1-3% Annual Mortality Rate) Curtis Fitzgerald MD on February 17, 2017 at 11:10 Board Certified Radiologist. This report was verified electronically.
[2017-02-17] MEDS: SODIUM CHLOR 0.9% 1000 ML INJ 1,000 ML IV SCH (17:00)
--- NOTE | 2017-02-17 20:24 | RADRPT ---
EXAM DATE/TIME: 02/17/2017 18:25 [facility] COMPARISON: No previous studies available for comparison. INDICATIONS : Left arm and neck pain. MEDICAL HISTORY : None. SURGICAL HISTORY : Coronary artery stent. ENCOUNTER: Subsequent ACUITY: 2 day PAIN SCORE: 6/10 LOCATION: upper spine. TECHNIQUE: Multiplanar multisequence MRI of the thoracic spine was performed. FINDINGS: There is motion degradation of several of the acquisitions, especially the axial T2. The patient wou ld not allow any further or repeat scanning. VERTEBRA: Normal vertebral body height. Homogeneous marrow signal. ALIGNMENT: Normal. CORD: Normal position and configuration. T1-T2: Normal. T2-T3: The thecal sac has a normal diameter. No evidence of disc bulge or protrusion. T3-T4: The thecal sac has a normal diameter. No evidence of disc bulge or protrusion. T4-T5: The thecal sac has a normal diameter. No evidence of disc bulge or protrusion. T5-T6: The thecal sac has a normal diameter. No evidence of disc bulge or protrusion. T6-T7: The thecal sac has a normal diameter. No evidence of disc bulge or protrusion. T7-T8: The thecal sac has a normal diameter. No evidence of disc bulge or protrusion. T8-T9: Right-sided epidural impression suggesting disc bulging or protrusion. No evidence cord compression. T9-T10: There is symmetric bilateral facet joint hypertrophy causing flattening of the dorsal lateral aspect of the thecal sac. No evidence of disc bulge or protrusion. T10-T11: There is minimal bilateral facet joint hypertrophy without significant deformity of the thecal sac. No evidence of disc bulge protrusion. T11-T12: The thecal sac has a normal diameter. No evidence of disc bulge or protrusion. T12-L1: The thecal sac has a normal diameter. No evidence of disc bulge or protrusion. CONCLUSION: 1. Epidural impression on the right side at T8-T9 due to either to a disc bulge or protrusion. No ev idence cord compression. 2. Moderate facet joint hypertrophy T9-11 which cause some impression upon the dorsolateral thecal sa cMore Jones MD on February 17, 2017 at 20:19 Board Certified Radiologist. This report was verified electronically.
[2017-02-17] MEDS: MULTIVITAMIN INJ 10 ML, FOLIC ACID INJ 1 MG in SODIUM CHLORID 0.9% 500 ML INJ 500 ML IV SCH (22:42)
[2017-02-17] MEDS: THIAMINE INJ 100 MG in SODIUM CHLORIDE 0.9% INJ 100 ML IV SCH (22:42)
[2017-02-17] MEDS: MORPHINE SULFATE 4 MG/ML INJ IV PRN (22:52)
[2017-02-18] MEDS: MULTIVITAMIN INJ 10 ML, FOLIC ACID INJ 1 MG in SODIUM CHLORID 0.9% 500 ML INJ 500 ML IV SCH (00:56)
[2017-02-18] MEDS: SODIUM CHLOR 0.9% 1000 ML INJ 1,000 ML IV SCH ×2 (04:53→20:47)
[2017-02-18 07:40] VITALS: BP 130/74; PULSE 66; RESP 17; TEMP 97.7; O2SAT 93
[2017-02-18] MEDS: SODIUM CHLORIDE 0.9% FLUSH 10 ML FLUSH IV FLUSH SCH ×2 (09:00→20:47)
[2017-02-18] MEDS: ASPIRIN EC 81 MG TABEC PO SCH (09:15)
[2017-02-18] MEDS: ACETAMINOPHEN/HYDROcodone 325 MG/5 MG TAB PO PRN (09:15)
[2017-02-18] MEDS ORDERED: LORazepam 1 MG TAB PO ONE (09:45)
--- NOTE | 2017-02-18 10:35 | HHI.PR ---
Subjective Remarks Follow-up for left shoulder pain. The patient continues to complain of constant left shoulder pain. He has associated paresthesias with numbness and tingling down to his hand. He states the pain is worse with movement. He states the pain is intermittently worse. He denies any fevers or chills. He has been tolerating diet. He states he lives with a friend. He states he can take the bus to follow-up in community clinic if needed. Objective Vitals Vital Signs Date Time Temp Pulse Resp B/P Pulse Ox O2 Delivery O2 Flow Rate FiO2 02/18/17 10:18 20 02/18/17 07:40 97.7 66 17 130/74 93 02/17/17 23:37 98.2 68 18 115/72 92 02/17/17 20:00 78 02/17/17 19:33 97.8 78 20 111/65 93 02/17/17 15:34 97.9 76 18 109/75 97 02/17/17 11:31 97.5 90 18 122/71 96 Result Diagram: 02/16/17 1122 02/16/17 1122 Imaging Last Impressions Myocardial Perfusion Scan Nuc Med 02/17/17 0700 Signed Impressions: Service Date/Time: Friday, February 17, 2017 09:20 - CONCLUSION: Mild severity fixed anterior perfusion abnormality without evidence of ischemia. RISK CATEGORY: Intermediate (1-3%% Annual Mortality Rate) Curtis Fitzgerald MD Thoracic Spine MRI 02/17/17 0000 Signed Impressions: Service Date/Time: Friday, February 17, 2017 18:25 - CONCLUSION: 1. Epidural impression on the right side at T8-T9 due to either to a disc bulge or protrusion. No evidence cord compression. 2. Moderate facet joint hypertrophy T9-11 which cause some impression upon the dorsolateral thecal sac. Brayden Jones MD Carotid Artery Ultrasound 02/16/17 0000 Signed Impressions: Service Date/Time: Thursday, February 16, 2017 08:24 - CONCLUSION: Negative examination for a hemodynamically significant carotid stenosis. Jesus Choudhary MD Shoulder X-Ray 02/15/17 2250 Signed Impressions: Service Date/Time: Wednesday, February 15, 2017 23:06 - CONCLUSION: 1. No acute abnormality. 2. Degenerative changes of the a.c. joint. Brayden Nguyen Jr., MD Brain MRI 02/15/172107 Signed Impressions: Service Date/Time: Wednesday, February 15, 2017 21:38 - CONCLUSION: 1. No acute findings. Specifically no recent infarct, mass effect or shift. Rodrigo Kan MD Head CT 02/15/172029 Signed Impressions: Service Date/Time: Wednesday, February 15, 2017 20:46 - CONCLUSION: Normal examination for a patient of this age. No significant change has occurred. Rodrigo Kan MD Chest X-Ray 02/15/172029 Signed Impressions: Service Date/Time: Wednesday, February 15, 2017 20:27 - CONCLUSION: 1. Minimal basal atelectasis or scarring. Rodrigo Kan MD Objective Remarks GENERAL: Well-developed well-nourished. In no acute distress. SKIN: Warm and dry. No lesions noted. HEENT: Normocephalic. Pupils equal and round. Mucous membranes pink and moist. CARDIOVASCULAR: Regular rate and rhythm. No murmur appreciated. RESPIRATORY: No accessory muscle use. Clear to auscultation. Breath sounds equal bilaterally. GASTROINTESTINAL: Abdomen soft, non-tender, nondistended. Bowel sounds x4. MUSCULOSKELETAL: No obvious deformities. No clubbing or cyanosis. No edema. Left shoulder nontender to palpation however left shoulder pain elicited with any active or passive ROM exercises of the arm. Mildly tender left trapezius and upper thoracic paraspinous muscles consistent with muscle spasms. NEUROLOGICAL: Awake and alert. No focal neurological deficits. Moves upper and lower extremities spontaneously. Normal speech. PSYCHIATRIC: Appropriate mood and affect; insight and judgment normal. A/P Problem List: (1) Chest pain ICD Code: R07.9 Status: Resolved (2) Lower extremity weakness ICD Code: R29.898 Status: Acute (3) Alcoholic intoxication ICD Code: F10.129 Status: Acute Assessment and Plan 56-year-old male with a PMH of Anxiety, Depression, CAD s/p Stent 2011, Alcohol Abuse, Tobacco Abuse and h/o Methamphetamine Abuse who presents to the ER with complaints of chest pain with radiation to left shoulder. Atypical Chest Pain: acute onset of chest pain w/ radiation to left shoulder, h /o CAD w/stent x1. ACS ruled out with negative serial cardiac enzymes x3 and EKG with no acute ischemia. Monitor on telemetry. CXR w/ no acute findings, images reviewed by me. NTG/Morphine prn if needed. Suspect musculoskeletal related to shoulder pain however with hx of CAD w/stent, checked Nuclear Stress Test which showed mild severity fixed anterior perfusion abnormality without evidence of acute ischemia. Currently chest pain free and no further episodes. Resolved. Left Shoulder Pain: strongly suspect musculoskeletal, advanced arthritis, muscle spasms. Shoulder xray images reviewed, no acute abnormality, shows degenerative changes of the AC joint. Deale prn. Flexeril prn. Continued pain, check C-spine MRI and L shoulder MRI. LE Weakness: reports lower extremity weakness w/ difficulty ambulating due to weakness. MRI Brain w/ no acute findings Carotid US unremarkable. PT consulted. Planning for outpatient physical therapy., Case management consulted Alcohol Abuse w/ Acute Alcohol Intoxication: drinks daily, Alcohol 311. Counseled on cessation. Seizure Precautions, MVT/Thiamine/Folate, start CIWA protocol to prevent withdrawal during hospitalization. DVT Prophylaxis: SCD/Teds. Written by Andrea Yan, acting as scribe for Dr. Puente on 02/18/17 at 10:34. All or portions of this note were transcribed by scribe ANTHONY Bennett. I, Dr. Hong Puente personally performed the history, physical exam, and medical decision making; and confirmed the accuracy of the information in the transcribed note. Authenticated by Dr. Hong Puente on 02/18/17 at 23:16. Discharge Planning Follow-up results of cervical and left shoulder imaging. Case management consult for assistance with outpatient follow-up. Anticipate discharge later today. Problem Qualifiers (1) Chest pain: Qualified Code: R07.9 - Chest pain, unspecified type (2) Lower extremity weakness: Qualified Code: R29.898 - Weakness of left lower extremity (3) Alcoholic intoxication: Qualified Code: F10.129 - Alcoholic intoxication, with unspecified complication Andrea Yan Feb 18, 2017 10:35 Santhosh Puente DO Feb 18, 2017 23:17
[2017-02-18 10:50] VITALS: BP 103/56; PULSE 83; RESP 16; TEMP 97.8; O2SAT 96
[2017-02-18 16:05] VITALS: BP 102/60; PULSE 74; RESP 18; TEMP 98.1; O2SAT 96
--- NOTE | 2017-02-18 18:09 | RADRPT ---
EXAM DATE/TIME: 02/18/2017 14:26 [facility] COMPARISON: No previous studies available for comparison. INDICATIONS : Neck pain with left arm numbness. MEDICAL HISTORY : None. SURGICAL HISTORY : Coronary artery stent. ENCOUNTER: Subsequent ACUITY: 2 day PAIN SCORE: 4/10 LOCATION: neck. TECHNIQUE: Multiplanar, multisequence MRI examination of the cervical spine was performed. FINDINGS: VERTEBRAE: Normal vertebral body height. Homogeneous marrow signal. ALIGNMENT: No evidence of subluxation. CORD: Normal configuration and signal. POST FOSSA: The cerebellar tonsils are normal in position. C2-C3: The thecal sac has a normal configuration. There is no evidence of disc herniation or spinal canal s tenosis. The neural foramina are patent bilaterally. C3-C4: There is a small central disc protrusion without stenosis. C4-C5: Mild disc bulge without stenosis. C5-C6: Posterior osteophytic ridging, worse on the right with right lateral recess and right foraminal steno sis. Minimal left foraminal encroachment. C6-C7: Mild osteophytic ridging without stenosis. C7-T1: The thecal sac has a normal configuration. There is no evidence of disc herniation or spinal canal s tenosis. The neural foramina are patent bilaterally. CONCLUSION: 1. At C3-4 there is a small central protrusion effacing intrathecal sac without stenosis. 2. At C5-6 there is osteophytic ridging, worse on the right side with mild right lateral recess and f oraminal encroachment. 3. Mild degenerative change at C4-5 and C6-7 results in mild encroachment on the thecal sac without s tenosis. 4. No cord compression or cord edema. Normal alignment of the cervical spine. Rodrigo Kan MD on February 18, 2017 at 18:04 Board Certified Radiologist. This report was verified electronically.
[2017-02-18 20:00] VITALS: BP 120/74; PULSE 84; RESP 20; TEMP 97.6; O2SAT 95
[2017-02-18 23:39] VITALS: BP 132/72; PULSE 68; RESP 18; TEMP 97.4; O2SAT 96
[2017-02-19 04:11] VITALS: BP 132/68; PULSE 68; RESP 19; TEMP 98; O2SAT 97
[2017-02-19 04:37] VITALS: PULSE 64
[2017-02-19] MEDS: ACETAMINOPHEN/HYDROcodone 325 MG/5 MG TAB PO PRN (05:49)
[2017-02-19] MEDS: MORPHINE SULFATE 4 MG/ML INJ IV PRN (07:36)
[2017-02-19 07:45] VITALS: BP 127/73; PULSE 77; RESP 19; TEMP 97.9; O2SAT 97
--- NOTE | 2017-02-19 08:46 | RADRPT ---
EXAM DATE/TIME: 02/19/2017 07:48 [facility] COMPARISON: SHOULDER LEFT COMPLETE (>2VWS), February 15, 2017, 23:06. CHEST SINGLE AP, February 15, 2017, 20:27. INDICATIONS : Left arm pain. MEDICAL HISTORY : None. SURGICAL HISTORY : Coronary artery stent. ENCOUNTER: Subsequent ACUITY: 3 day PAIN SCORE: 5/10 LOCATION: Left shoulder. TECHNIQUE: Multiplanar, multisequence MRI examination was performed without contrast. FINDINGS: ROTATOR CUFF: There is diffuse thinning of the distal supraspinatus and infraspinatus tendons. Mild articular surfa ce irregularity of the distal infraspinatus tendon just proximal to the insertion. No fluid-filled te ndon gap. Mild intermediate signal abnormality of the distal subscapularis tendon indicating tendinos is. Teres minor tendon is intact. LABRUM: Small tear of the posterior superior labrum. MARROW/CARTILAGE: Small glenohumeral joint osteophytes. Mild articular cartilage thinning of the superior glenoid and s uperior central humeral head. OTHER: Moderate severity hypertrophic change of the acromioclavicular joint. Acromion is Type 1 (flat). Pr oximal biceps tendon is intact. 1.9 cm nodule noted in the left upper lung. CONCLUSION: 1. Nodule in the left upper lung. Recommend correlation with noncontrast chest CT. 2. Glenohumeral joint arthrosis with small osteophytes and mild chondromalacia. 3. Diffuse thinning of the distal supraspinatus and infraspinatus tendons and mild articular surface irregularity of the distal infraspinatus tendon but no full thickness fluid-filled gap. 4. Mild distal subscapularis tendinosis. 5. Small posterior superior labral tear 6. Moderate severity acromioclavicular joint arthritic findings. Rodolfo Doan MD on February 19, 2017 at 8:36 Board Certified Radiologist. This report was verified electronically.
[2017-02-19] MEDS ORDERED: THIAMINE HCL 100 MG TAB PO SCH (09:00)
[2017-02-19] MEDS: ASPIRIN EC 81 MG TABEC PO SCH (09:37)
[2017-02-19] MEDS: SODIUM CHLORIDE 0.9% FLUSH 10 ML FLUSH IV FLUSH SCH (09:38)
[2017-02-19] MEDS ORDERED: NAPROXEN SODIUM 550 MG TAB PO SCH (10:15)
[2017-02-19] MEDS ORDERED: FAMOTIDINE 20 MG TAB PO SCH (10:15)
[2017-02-19] MEDS ORDERED: NAPROXEN SODIUM PO (10:32)
[2017-02-19] MEDS ORDERED: FAMO20TA2 PO (10:32)
[2017-02-19] MEDS ORDERED: ASPI81TA11 PO (11:04)
--- NOTE | 2017-02-19 11:04 | HHI.DS ---
Discharge Summary Admission Date Feb 15, 2017 at 22:47 Discharge Date: Feb 19, 2017 Admitting Diagnosis Cp [place], left sided neurologic symptoms, R/o TIA (1) Chest pain ICD Code: R07.9 Diagnosis: Principal (2) Alcoholic intoxication ICD Code: F10.129 Diagnosis: Secondary (3) Left arm pain ICD Code: M79.602 Diagnosis: Principal (4) Lung nodule ICD Code: R91.1 Diagnosis: Secondary Procedures none Brief History - From Admission This is a 56-year-old male with a PMH of Anxiety, Depression, CAD s/p Stent 2011 , Alcohol Abuse, Tobacco Abuse and h/o Methamphetamine Abuse who presents to the ER with complaints of chest pain with radiation to left shoulder. Patient arrives in the ER acutely intoxicated. While in ER, also had complaints of left lower extremity weakness and difficulty ambulating. On arrival, BP 120/79 , HR 97, O2 sat 93% on RA, Afebrile. CBC unremarkable. Chemistry essentially unremarkable. Troponin negative. EKG with no acute changes. Alcohol 311. Urine Drug Screen negative. UA negative. CXR with no acute findings, minimal basal atelectasis. MRI Brain with no acute findings. Shoulder X-ray negative. CBC/BMP: 02/16/17 1122 02/16/17 1122 Significant Findings Laboratory Tests Test 02/16/17 11:22 Red Blood Count 4.12 MIL/MM3 (4.50-5.90) Hematocrit 38.4 % (39.0-51.0) Monocytes (%) (Auto) 8.8 % (0.0-8.0) Eosinophils (%) (Auto) 4.1 % (0.0-4.0) Blood Urea Nitrogen 5 MG/DL (7-18) Calcium Level 8.1 MG/DL (8.5-10.1) Troponin I LESS THAN 0.02 NG/ML (0.02-0.05) Albumin 3.0 GM/DL (3.4-5.0) Imaging Last Impressions Shoulder MRI 02/19/17 0000 Signed Impressions: Service Date/Time: February 07:48 - CONCLUSION: 1. Nodule in the left upper lung. Recommend correlation with noncontrast chest CT. 2. Glenohumeral joint arthrosis with small osteophytes and mild chondromalacia. 3. Diffuse thinning of the distal supraspinatus and infraspinatus tendons and mild articular surface irregularity of the distal infraspinatus tendon but no full thickness fluid-filled gap. 4. Mild distal subscapularis tendinosis. 5. Small posterior superior labral tear 6. Moderate severity acromioclavicular joint arthritic findings. Rodolfo Doan MD Cervical Spine MRI 02/18/17 0000 Signed Impressions: Service Date/Time: Saturday, February 18, 2017 14:26 - CONCLUSION: 1. At C3-4 there is a small central protrusion effacing intrathecal sac without stenosis. 2. At C5-6 there is osteophytic ridging, worse on the right side with mild right lateral recess and foraminal encroachment. 3. Mild degenerative change at C4-5 and C6-7 results in mild encroachment on the thecal sac without stenosis. 4. No cord compression or cord edema. Normal alignment of the cervical spine. Rodrigo Kan MD Myocardial Perfusion Scan Nuc Med 02/17/17 0700 Signed Impressions: Service Date/Time: Friday, February 17, 2017 09:20 - CONCLUSION: Mild severity fixed anterior perfusion abnormality without evidence of ischemia. RISK CATEGORY: Intermediate (1-3%% Annual Mortality Rate) Curtis Fitzgerald MD Thoracic Spine MRI 02/17/17 0000 Signed Impressions: Service Date/Time: Friday, February 17, 2017 18:25 - CONCLUSION: 1. Epidural impression on the right side at T8-T9 due to either to a disc bulge or protrusion. No evidence cord compression. 2. Moderate facet joint hypertrophy T9-11 which cause some impression upon the dorsolateral thecal sac. Brayden Jones MD Carotid Artery Ultrasound 02/16/17 0000 Signed Impressions: Service Date/Time: Thursday, February 16, 2017 08:24 - CONCLUSION: Negative examination for a hemodynamically significant carotid stenosis. Jesus Choudhary MD Shoulder X-Ray 02/15/17 2250 Signed Impressions: Service Date/Time: Wednesday, February 15, 2017 23:06 - CONCLUSION: 1. No acute abnormality. 2. Degenerative changes of the a.c. joint. Brayden Nguyen Jr., MD Brain MRI 02/15/172107 Signed Impressions: Service Date/Time: Wednesday, February 15, 2017 21:38 - CONCLUSION: 1. No acute findings. Specifically no recent infarct, mass effect or shift. Rodrigo Kan MD Head CT 02/15/172029 Signed Impressions: Service Date/Time: Wednesday, February 15, 2017 20:46 - CONCLUSION: Normal examination for a patient of this age. No significant change has occurred. Rodrigo Kan MD Chest X-Ray 02/15/172029 Signed Impressions: Service Date/Time: Wednesday, February 15, 2017 20:27 - CONCLUSION: 1. Minimal basal atelectasis or scarring. Rodrigo Kan MD PE at Discharge GENERAL: Well-developed well-nourished. In no acute distress. SKIN: Warm and dry. No lesions noted. HEENT: Normocephalic. Pupils equal and round. Mucous membranes pink and moist. CARDIOVASCULAR: Regular rate and rhythm. No murmur appreciated. RESPIRATORY: No accessory muscle use. Clear to auscultation. Breath sounds equal bilaterally. GASTROINTESTINAL: Abdomen soft, non-tender, nondistended. Bowel sounds x4. MUSCULOSKELETAL: No obvious deformities. No clubbing or cyanosis. No edema. Left shoulder nontender to palpation however left shoulder pain elicited with any active or passive ROM exercises of the arm. Mildly tender left trapezius and upper thoracic paraspinous muscles consistent with muscle spasms. NEUROLOGICAL: Awake and alert. No focal neurological deficits. Moves upper and lower extremities spontaneously. Normal speech. PSYCHIATRIC: Appropriate mood and affect; insight and judgment normal. Pt update on day of discharge Patient continues to complain of pain in his left shoulder, unchanged. Hospital Course 56-year-old male with a PMH of Anxiety, Depression, CAD s/p Stent 2011, Alcohol Abuse, Tobacco Abuse and h/o Methamphetamine Abuse who presents to the ER with complaints of chest pain with radiation to left shoulder. Atypical Chest Pain: acute onset of chest pain w/ radiation to left shoulder, h /o CAD w/stent x1. ACS ruled out with negative serial cardiac enzymes x3 and EKG with no acute ischemia. Monitor on telemetry. CXR w/ no acute findings, images reviewed by me. NTG/Morphine prn if needed. Suspect musculoskeletal related to shoulder pain however with hx of CAD w/stent, checked Nuclear Stress Test which showed mild severity fixed anterior perfusion abnormality without evidence of acute ischemia. Currently chest pain free and no further episodes. Resolved. Left Shoulder Pain: strongly suspect musculoskeletal, advanced arthritis, muscle spasms. Shoulder xray with no acute abnormality, shows degenerative changes of the AC joint. Continued pain, check C-spine MRI and L shoulder MRI. Cervical MRI with mild degenerative changes. Shoulder MRI with mild to moderate chronic findings. Naproxen as needed with gastric protection. LE Weakness: reports lower extremity weakness w/ difficulty ambulating due to weakness. MRI Brain w/ no acute findings Carotid US unremarkable. PT consulted. Planning for outpatient physical therapy, follow-up with PCP. Alcohol Abuse w/ Acute Alcohol Intoxication: drinks daily, Alcohol 311. Counseled on cessation. Seizure Precautions, MVT/Thiamine/Folate, covered with CIWA protocol to prevent withdrawal during hospitalization. Lung nodule: Incidental left upper lung nodule seen on shoulder MRI. Patient informed of findings. Recommended outpatient chest CT in 3 months to assess for stability. Pt Condition on Discharge: Stable Discharge Disposition: Discharge Home Discharge Time: > 30 minutes Discharge Instructions DIET: Follow Instructions for: Heart Healthy Diet Activities you can perform: Regular-No Restrictions Follow up Referrals: PCP Follow-up - 1 Week with Sharla Maxwell MD New Orders: CT THORAX W/O CONTRAST (CHEST) - 3 Months New Medications: Aspirin DR (Aspirin EC) 81 Mg Tabdr 81 MG PO DAILY Blood Clot Prevention #30 TAB Famotidine (Famotidine) 20 Mg Tab 10 MG PO BID Reflux #60 TAB ([Naproxen Sodium]) 550 MG TAB 550 MG PO BID Inflammation #60 TAB Additional Information Written by Andrea Yan, acting as scribe for Dr. Puente on 02/19/17 at 11:04. All or portions of this note were transcribed by scribANTHONY Velazquez. I, Dr. Hong Puente personally performed the history, physical exam, and medical decision making; and confirmed the accuracy of the information in the transcribed note. Authenticated by Dr. Hong Puetne on 02/20/17 at 00:19. Andrea Yan Feb 19, 2017 11:04 Santhosh Puente DO Feb 20, 2017 00:20
[2017-02-19 11:47] VITALS: BP 108/65; PULSE 72; RESP 20; TEMP 97.9; O2SAT 96
[2017-02-19 13:05] VITALS: PULSE 68
== END 2017-02-19 14:41 | disposition home or self-care (01) ==
LOC: NEPC 20:13 → NEDH 22:47 → NEPHCDU 02-16 00:59
PROVIDERS: ADMIT Hospitalist; ATTEND Hospitalist
DX: R07.89 Other chest pain (principal); R53.1 Weakness; M25.512 Pain in left shoulder; R91.1 Solitary pulmonary nodule; F10.129 Alcohol abuse with intoxication, unspecified; I25.2 Old myocardial infarction; K21.9 Gastro-esophageal reflux disease without esophagitis; I25.10 Atherosclerotic heart disease of native coronary artery without angina pectoris; E78.5 Hyperlipidemia, unspecified; M19.90 Unspecified osteoarthritis, unspecified site; F41.9 Anxiety disorder, unspecified; F32.9 Major depressive disorder, single episode, unspecified; H91.90 Unspecified hearing loss, unspecified ear; F17.210 Nicotine dependence, cigarettes, uncomplicated; Z95.5 Presence of coronary angioplasty implant and graft
CPT/HCPCS: 70450; 70551; 71010; 72141; 72146; 73030; 73221; 78452; 80053; 80307; 81001; 82550; 82552; 82948; 83690; 83735; 83880; 84484; 85025; 85610; 85730; 93005; 93017; 93880; 97162; 99285; A9502; G0378; G8987; G8988; J2060; J2270; J2785; J3411; J7030; J7040

== ENCOUNTER 2017-03-25 01:58 | Emergency (ER) | payer SELFPAY ==
[~2017-03-25] VITALS: Ht 180.3 cm; Wt 65.0 kg
[~2017-03-25 01:58] MED LIST: ASPI81TA11 PO; FAMO20TA2 PO; NAPROXEN SODIUM PO
[2017-03-25 02:01] VITALS: BP 167/104; PULSE 112; RESP 16; TEMP 98; O2SAT 97
[2017-03-25] MEDS ORDERED: SODIUM CHLORIDE 0.9% FLUSH 10 ML FLUSH IVF PRN (02:15)
[2017-03-25] MEDS: NITROGLYCERIN 0.4 MG SL 25 TABS/BTL SL SCH ×3 (02:15→02:25)
[2017-03-25] MEDS ORDERED: NITROGLYCERIN 2% OINT 1 GM PACKET TOP ONE (02:15)
[2017-03-25] MEDS ORDERED: ASPIRIN 81 MG CHEW TAB PO ONE (02:15)
[2017-03-25 02:24] VITALS: BP 96/56; PULSE 100; RESP 24; TEMP 98.8; O2SAT 95; O2SAT 97
[2017-03-25 02:45] LABS: AUTOMATED NEUTROPHIL # 2.7 TH/MM3 (1.8-7.7); BASOPHIL # 0.1 TH/MM3 (0-0.2); BASOPHIL % 1.1 % (0.0-2.0); EOSINOPHIL # 0.5 TH/MM3 (0-0.4); EOSINOPHIL % 8.2 % (0.0-4.0); HEMATOCRIT 39.7 % (39.0-51.0); HEMO FLAGS DIFF FINAL; LYMPH % 41.1 % (9.0-44.0); LYMPHOCYTE # 2.7 TH/MM3 (1.0-4.8); MEAN CELL VOLUME 94.1 FL (80.0-100.0); MEAN CORPUSCULAR HEMOGLOBIN 30.9 PG (27.0-34.0); MEAN CORPUSCULAR HGB CONC 32.9 % (32.0-36.0); MONO % 9.4 % (0.0-8.0); NEUT % 40.2 % (16.0-70.0); PLATELET COUNT 205 TH/MM3 (150-450); RED BLOOD COUNT 4.21 MIL/MM3 (4.50-5.90); RED CELL DISTRIBUTION WIDTH 13.4 % (11.6-17.2); WHITE BLOOD COUNT 6.6 TH/MM3 (4.0-11.0)
--- NOTE | 2017-03-25 02:48 | RADRPT ---
EXAM DATE/TIME: 03/25/2017 02:33 [facility] COMPARISON: CHEST SINGLE AP, February 15, 2017, 20:27. INDICATIONS : Chest pain. MEDICAL HISTORY : None. SURGICAL HISTORY : None. ENCOUNTER: Initial ACUITY: 1 day PAIN SCORE: 0/10 LOCATION: Bilateral chest FINDINGS: 2 frontal views of the chest demonstrate the lungs to be symmetrically aerated without evidence of ma ss, infiltrate or effusion. The cardiomediastinal contours are unremarkable. Osseous structures are intact. CONCLUSION: No acute disease. Brayden Nguyen Jr., MD on March 25, 2017 at 2:45 Board Certified Radiologist. This report was verified electronically.
[2017-03-25 02:59] LABS: APTT (PATIENT) 27.4 SEC (24.3-30.1); INTERNATIONAL NORMALIZED RATIO 0.9 RATIO
[2017-03-25 03:17] LABS: ANION GAP 9 MEQ/L (5-15); AST (GOT) 37 U/L (15-37); BLOOD UREA NITROGEN 7 MG/DL (7-18); CHLORIDE 101 MEQ/L (98-107); GLOMERULAR FILTRATION RATE 117 ML/MIN (>89); MAGNESIUM 1.9 MG/DL (1.5-2.5); POTASSIUM 3.8 MEQ/L (3.5-5.1); SODIUM (NA) 138 MEQ/L (136-145)
[2017-03-25 03:22] LABS: ALKALINE PHOSPHATASE 94 U/L (45-117); ALT (GPT) 20 U/L (12-78); CREATINE KINASE 141 U/L (39-308); TOTAL BILIRUBIN ADULT 0.2 MG/DL (0.2-1.0)
[2017-03-25 03:34] LABS: CKMB 2.1 NG/ML (0.5-3.6)
[2017-03-25] MEDS ORDERED: ACETAMINOPHEN 325 MG TAB PO ONE (04:00)
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
--- NOTE | 2017-03-25 19:41 | EKG ---
Date Performed: 03/25/2017 Time Performed: 02:18:22 PTAGE: 56 years EKG: Sinus rhythm NORMAL ECG PREVIOUS TRACING : 02/15/2017 20.26 Compared to prior tracing no significant change DOCTOR: Lisa Velásquez Interpretating Date/Time 03/25/2017 19:40:27
== END 2017-03-25 04:50 | disposition home or self-care (01) ==
LOC: NEPE 01:58
DX: S46.009A Unspecified injury of muscle(s) and tendon(s) of the rotator cuff of unspecified shoulder, initial encounter (principal); I25.2 Old myocardial infarction; E78.5 Hyperlipidemia, unspecified; I25.10 Atherosclerotic heart disease of native coronary artery without angina pectoris; F17.200 Nicotine dependence, unspecified, uncomplicated; X50.9XXA Other and unspecified overexertion or strenuous movements or postures, initial encounter; Y93.E6 Activity, residential relocation; Z79.82 Long term (current) use of aspirin; Z79.899 Other long term (current) drug therapy
CPT/HCPCS: 71010; 80053; 82550; 82552; 83690; 83735; 83880; 84484; 85025; 85610; 85730; 93005

== ENCOUNTER 2017-04-23 13:03 | Emergency (ER) | payer SELFPAY ==
[~2017-04-23] VITALS: Ht 180.3 cm; Wt 70.0 kg
[2017-04-23 13:17] VITALS: BP 125/64; PULSE 86; RESP 24; TEMP 97.6; O2SAT 98
[2017-04-23] MEDS ORDERED: HYDROmorphone HCL PF 1 MG/ML VIAL IV PUSH ONE (14:00)
[2017-04-23] MEDS ORDERED: KETOROLAC TROMETHAMINE 30 MG/ML (IVP) VIAL IV PUSH ONE (14:00)
[2017-04-23 14:30] VITALS: BP 126/78; PULSE 78; RESP 18; O2SAT 99
[2017-04-23 15:00] LABS: AUTOMATED NEUTROPHIL # 4.9 TH/MM3 (1.8-7.7); BASOPHIL # 0.1 TH/MM3 (0-0.2); BASOPHIL % 1.1 % (0.0-2.0); EOSINOPHIL # 0.2 TH/MM3 (0-0.4); EOSINOPHIL % 2.8 % (0.0-4.0); HEMATOCRIT 45.1 % (39.0-51.0); HEMO FLAGS DIFF FINAL; LYMPHOCYTE # 1.8 TH/MM3 (1.0-4.8); MEAN CELL VOLUME 95.3 FL (80.0-100.0); MEAN CORPUSCULAR HEMOGLOBIN 31.9 PG (27.0-34.0); MEAN CORPUSCULAR HGB CONC 33.5 % (32.0-36.0); MONO % 8.6 % (0.0-8.0); NEUT % 64.5 % (16.0-70.0); PLATELET COUNT 305 TH/MM3 (150-450); RED BLOOD COUNT 4.74 MIL/MM3 (4.50-5.90); RED CELL DISTRIBUTION WIDTH 14.8 % (11.6-17.2); WHITE BLOOD COUNT 7.6 TH/MM3 (4.0-11.0)
[2017-04-23 15:35] LABS: ALKALINE PHOSPHATASE 89 U/L (45-117); ALT (GPT) 18 U/L (12-78); TOTAL BILIRUBIN ADULT 0.4 MG/DL (0.2-1.0)
[2017-04-23 15:38] LABS: ANION GAP 5 MEQ/L (5-15); AST (GOT) 30 U/L (15-37); BLOOD UREA NITROGEN 5 MG/DL (7-18); CHLORIDE 101 MEQ/L (98-107); GLOMERULAR FILTRATION RATE 96 ML/MIN (>89); SODIUM (NA) 135 MEQ/L (136-145)
[2017-04-23 15:39] LABS: POTASSIUM 5.2 MEQ/L (3.5-5.1)
--- NOTE | 2017-04-23 16:09 | RADRPT ---
EXAM DATE/TIME: 04/23/2017 15:10 [facility] COMPARISON: No previous studies available for comparison. INDICATIONS : Pain. Lower back pain, radiating down right leg. MEDICAL HISTORY : Chronic obstructive pulmonary disease. Arthritis. SURGICAL HISTORY : Cardiac stent. ENCOUNTER: Subsequent ACUITY: 1 day PAIN SCORE: 5/10 LOCATION: Lower back TECHNIQUE: Multiplanar multisequence MRI of the lumbar spine was performed without contrast. FINDINGS: The most caudal appearing lumbar vertebra is numbered as L5. VERTEBRAE: Homogeneous signal. Normal alignment. CONUS: Normal level and configuration. T12-L1: The thecal sac has a normal diameter. No evidence of disc bulge or protrusion. The neural foramina are patent bilaterally. L1-L2: The thecal sac has a normal diameter. No evidence of disc bulge or protrusion. The neural foramina are patent bilaterally. L2-L3: The thecal sac has a normal diameter. No evidence of disc bulge or protrusion. The neural foramina are patent bilaterally. L3-L4: There is disc desiccation without significant height loss. A mild broad-based disc bulge. Mild ligame ntum flavum hypertrophy and bony hypertrophy of the facets. The lateral recesses, central canal, and left neural foramen are patent. The disc just touches the inferior margin of the right L3 nerve root within the neural foramen. L4-L5: There is disc desiccation with disc space height loss and broad-based bulge. High T2 signal involving the posterior annulus consistent with fissuring. Moderate ligamentum flavum hypertrophy and bony hyp ertrophy of the facets. This combination narrows the left lateral recess. The right lateral recess is patent. Mild narrowing of the central canal which measures 7 mm in anterior to posterior dimension w ithin the midline. Narrowing of the neural foramina more pronounced on the left without overt impinge ment. L5-S1: There is disc desiccation without height loss. Mild central bulge. Lateral recesses and central canal are patent. Moderate ligamentum flavum hypertrophy and bony hypertrophy of the facets. Narrowing of the neural foramina more pronounced on the left. No impingement. CONCLUSION: 1. Multilevel degenerative changes with mild narrowing the central canal at L4-L5. The only potential source for neural impingement involves the right L3 nerve root within the neural foramen. Brayden Nguyen Jr., MD on April 23, 2017 at 15:56 Board Certified Radiologist. This report was verified electronically.
[2017-04-23] MEDS ORDERED: PRED10PA2 PO (16:21)
[2017-04-23] MEDS ORDERED: TRAM50TA PO (16:21)
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
== END 2017-04-23 17:35 | disposition home or self-care (01) ==
LOC: NEPD 13:03
DX: M54.17 Radiculopathy, lumbosacral region (principal); F17.200 Nicotine dependence, unspecified, uncomplicated
CPT/HCPCS: 72148; 80053; 80307; 85025; 96374; 96375; 99285; J1170; J1885

== ENCOUNTER 2017-05-20 17:15 | Emergency (ER) | payer SELFPAY ==
[~2017-05-20] VITALS: Ht 180.3 cm; Wt 55.0 kg
[~2017-05-20 17:15] MED LIST changes: +PRED10PA2 PO; +TRAM50TA PO
[2017-05-20 17:37] VITALS: BP 86/54; PULSE 94; RESP 20; TEMP 98.6; O2SAT 91
[2017-05-20] MEDS ORDERED: KETOROLAC TROMETHAMINE 30 MG/ML (IVP) VIAL IV PUSH ONE (19:00)
[2017-05-20] MEDS ORDERED: ORPHENADRINE INJ 60 MG/2 ML AMP IV ONE (19:00)
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
[2017-05-20 19:25] VITALS: BP 106/60; PULSE 89; RESP 18; O2SAT 98
[2017-05-20 19:58] LABS: ALT (GPT) 21 U/L (12-78); ANION GAP 10 MEQ/L (5-15); AST (GOT) 36 U/L (15-37); BICARBONATE 21.9 MEQ/L (21.0-32.0); BLOOD UREA NITROGEN 3 MG/DL (7-18); CHLORIDE 96 MEQ/L (98-107); GLOMERULAR FILTRATION RATE 129 ML/MIN (>89); POTASSIUM 3.8 MEQ/L (3.5-5.1); SODIUM (NA) 128 MEQ/L (136-145)
[2017-05-20 20:01] LABS: ALKALINE PHOSPHATASE 66 U/L (45-117); TOTAL BILIRUBIN ADULT 0.3 MG/DL (0.2-1.0)
[2017-05-20] MEDS ORDERED: SODIUM CHLOR 0.9% 1000 ML INJ 1,000 ML IV ONE (20:30)
--- NOTE | 2017-05-20 20:44 | PD ---
Data Data Last Documented VS Vital Signs Date Time Temp Pulse Resp B/P Pulse Ox O2 Delivery O2 Flow Rate FiO2 05/20/17 19:25 89 18 106/60 98 05/20/17 17:37 98.6 Room Air Orders Comprehensive Metabolic Panel (05/20/17 18:52) Alcohol (Ethanol) (05/20/17 18:52) Iv Access Insert/Monitor (05/20/17 18:52) Ketorolac Inj (Toradol Inj) (05/20/17 19:00) Orphenadrine Inj (Norflex Inj) (05/20/17 19:00) Diet Regular Basic (05/20/17 Dinner) Sodium Chlor 0.9% 1000 Ml Inj (Ns 1000 M (05/20/17 20:30) Labs Laboratory Tests Test 05/20/17 19:00 Sodium Level 128 MEQ/L Potassium Level 3.8 MEQ/L Chloride Level 96 MEQ/L Carbon Dioxide Level 21.9 MEQ/L Anion Gap 10 MEQ/L Blood Urea Nitrogen 3 MG/DL Creatinine 0.64 MG/DL Estimat Glomerular Filtration 129 ML/MIN Rate Random Glucose 82 MG/DL Calcium Level 7.9 MG/DL Total Bilirubin 0.3 MG/DL Aspartate Amino Transf 36 U/L (AST/SGOT) Alanine Aminotransferase 21 U/L (ALT/SGPT) Alkaline Phosphatase 66 U/L Total Protein 7.2 GM/DL Albumin 3.4 GM/DL Ethyl Alcohol Level 356 MG/DL MDM Supervised Visit with PRAMOD: Yes Narrative Course Medical decision-making 56 year old man presents emergency Department intoxicated via EMS. He told me he is here for back pain. He told the [employer]LECT[employer] INST[employer] that he was here for feeling sad and depressed. He's here in the emergency department often. He can stand and walk but by his numbers is still fairly intoxicated. We'll and sleep it off. Her discharge when sober. Jaime Aceves MD May 20, 2017 20:44
[2017-05-20] MEDS ORDERED: MELO-1 PO (20:51)
[2017-05-20 21:30] VITALS: BP 108/61; PULSE 89; RESP 16; O2SAT 97
== END 2017-05-21 06:10 | disposition home or self-care (01) ==
LOC: NEPD 17:15
DX: M54.17 Radiculopathy, lumbosacral region (principal); F10.120 Alcohol abuse with intoxication, uncomplicated; Y90.8 Blood alcohol level of 240 mg/100 ml or more; F41.8 Other specified anxiety disorders; F17.210 Nicotine dependence, cigarettes, uncomplicated; M19.90 Unspecified osteoarthritis, unspecified site; I25.2 Old myocardial infarction; Z95.5 Presence of coronary angioplasty implant and graft
CPT/HCPCS: 80053; 80307; 96361; 96374; 96375; 99284; J1885; J2360; J7030

== ENCOUNTER 2017-07-30 21:03 | Emergency (ER) | payer SELFPAY ==
[~2017-07-30] VITALS: Ht 180.3 cm; Wt 68.0 kg
[~2017-07-30 21:03] MED LIST changes: +MELO-1 PO
[2017-07-30 21:09] VITALS: BP 88/62; PULSE 101; RESP 18; TEMP 97; O2SAT 97
[2017-07-30 21:13] VITALS: BP 96/65; PULSE 104; RESP 16
[2017-07-30] MEDS ORDERED: SODIUM CHLORIDE 0.9% FLUSH 10 ML FLUSH IVF PRN (21:30)
[2017-07-30 21:46] VITALS: BP 103/66; PULSE 99; RESP 18; O2SAT 98
[2017-07-30 21:49] VITALS: BP_SYST 88; BP_SYST 96; BP_DIAS 61; BP_DIAS 62; PULSE 98; RESP 18; O2SAT 99
--- NOTE | 2017-07-30 21:51 | RADRPT ---
EXAM DATE/TIME: 07/30/2017 21:39 [facility] COMPARISON: CHEST SINGLE AP, March 25, 2017, 2:33. INDICATIONS : Chest pain and left arm numbness. MEDICAL HISTORY : None. SURGICAL HISTORY : None. ENCOUNTER: Initial ACUITY: 2 days PAIN SCORE: 0/10 LOCATION: Left chest FINDINGS: A single view of the chest demonstrates the lungs to be symmetrically aerated without evidence of mas s, infiltrate or effusion. The cardiomediastinal contours are unremarkable. Osseous structures are intact. CONCLUSION: No evidence of acute cardiopulmonary disease. Curtis Price MD on July 30, 2017 at 21:49 Board Certified Radiologist. This report was verified electronically.
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
[2017-07-30 22:06] LABS: AUTOMATED NEUTROPHIL # 2.6 TH/MM3 (1.8-7.7); BASOPHIL # 0.1 TH/MM3 (0-0.2); BASOPHIL % 1.4 % (0.0-2.0); EOSINOPHIL # 0.2 TH/MM3 (0-0.4); EOSINOPHIL % 3.7 % (0.0-4.0); HEMATOCRIT 40.5 % (39.0-51.0); HEMO FLAGS DIFF FINAL; LYMPH % 40.4 % (9.0-44.0); LYMPHOCYTE # 2.4 TH/MM3 (1.0-4.8); MEAN CELL VOLUME 95.4 FL (80.0-100.0); MEAN CORPUSCULAR HEMOGLOBIN 31.5 PG (27.0-34.0); MEAN CORPUSCULAR HGB CONC 33.1 % (32.0-36.0); MONO % 9.2 % (0.0-8.0); NEUT % 45.3 % (16.0-70.0); PLATELET COUNT 212 TH/MM3 (150-450); RED BLOOD COUNT 4.25 MIL/MM3 (4.50-5.90); RED CELL DISTRIBUTION WIDTH 13.1 % (11.6-17.2); WHITE BLOOD COUNT 5.8 TH/MM3 (4.0-11.0)
[2017-07-30] MEDS ORDERED: ASPIRIN 81 MG CHEW TAB CHEW ONE (22:30)
[2017-07-30 22:36] LABS: ANION GAP 8 MEQ/L (5-15); BLOOD UREA NITROGEN 3 MG/DL (7-18); CHLORIDE 104 MEQ/L (98-107); GLOMERULAR FILTRATION RATE 139 ML/MIN (>89); MAGNESIUM 1.7 MG/DL (1.5-2.5); POTASSIUM 3.8 MEQ/L (3.5-5.1); SODIUM (NA) 136 MEQ/L (136-145)
[2017-07-31] VITALS: BP 96/61; PULSE 94; RESP 18; O2SAT 97
[2017-07-31 02:00] VITALS: BP 93/59; PULSE 84; RESP 18; O2SAT 98
[2017-07-31 03:46] LABS: CREATINE KINASE 67 U/L (39-308)
[2017-07-31 04:14] LABS: APTT (PATIENT) 28.4 SEC (24.3-30.1); INTERNATIONAL NORMALIZED RATIO 0.9 RATIO; PROTHROMBIN TIME - PATIENT 10.2 SEC (9.8-11.6)
[2017-07-31 05:00] VITALS: BP 107/56; PULSE 91; RESP 18; O2SAT 97
[2017-07-31 08:05] VITALS: BP 136/81; PULSE 101; RESP 19; TEMP 98.4; O2SAT 96
--- NOTE | 2017-07-31 11:38 | EKG ---
Date Performed: 07/30/2017 Time Performed: 21:38:12 PTAGE: 57 years EKG: Sinus rhythm NORMAL ECG Compared to prior tracing no significant change PREVIOUS TRACING : 03/25/2017 02.18 DOCTOR: Naveen Mckenzie Interpretating Date/Time 07/31/2017 11:36:56
[2017-07-31 12:25] VITALS: BP 151/75
== END 2017-07-31 12:27 | disposition home or self-care (01) ==
LOC: NEPC 21:03
DX: R07.1 Chest pain on breathing (principal); I25.10 Atherosclerotic heart disease of native coronary artery without angina pectoris; Z95.5 Presence of coronary angioplasty implant and graft
CPT/HCPCS: 71010; 80048; 80307; 82550; 83735; 84484; 85025; 85610; 85730; 93005; 99285